=== PATIENT | female | born 1970 | race Caucasian/White ===

== ENCOUNTER 2021-05-04 18:15 | Emergency (ER) | payer OTHER ==
[~2021-05-04] VITALS: Ht 160 cm; Wt 70.8 kg
[2021-05-04] MEDS ORDERED: PEPCID AC20 MG PO (20:50)
[2021-05-04] MEDS ORDERED: CARAFATE1 GM PO (20:50)
[2021-05-04] MEDS ORDERED: CLINDAMYCIN HC300 MG PO (20:50)
[2021-05-04] MEDS ORDERED: NAPROXEN375 MG PO (20:50)
[2021-05-11] MEDS ORDERED: ACETAMINOPHEN650 M2 (11:02)
== END 2021-05-04 20:57 | disposition home or self-care (01) ==
LOC: ER 18:15
DX: S81.822A Laceration with foreign body, left lower leg, initial encounter (principal); W22.8XXA Striking against or struck by other objects, initial encounter; Y93.89 Activity, other specified; Y92.414 Local residential or business street as the place of occurrence of the external cause; Y99.8 Other external cause status